=== PATIENT | female | born 1960 | race Caucasian/White ===

== ENCOUNTER 2021-03-07 06:38 | Day surgery (SDC) | payer BC ==
[2021-03-07] MEDS ORDERED: Lidocaine 1% PF 2 ML SDV INJECT ONE (06:39)
[2021-03-07] MEDS ORDERED: Propofol 200 MG/20 ML SDV IV ONE (06:39)
[2021-03-07] MEDS ORDERED: Lactated Ringers 1,000 ML IV SCH (06:45)
[2021-03-07] MEDS ORDERED: Sodium Chloride 0.9% 10 ML Syringe FLUSH PRN (06:45)
--- NOTE | 2021-03-07 08:24 | PCM.HP.2 ---
H&P History of Present Illness - General Date of Service: 03/07/21 Admit Problem/Dx: Admission Diagnosis/Problem Admission Diagnosis/Problem Colonoscopy Source of Information: Patient, Old Records History Limitations: Reports: No Limitations - History of Present Illness Initial Comments - Free Text/Narative: Here for colonoscopy for screening - Related Data Allergies/Adverse Reactions: Allergies Allergy/AdvReac Type Severity Reaction Status Date / Time acetaminophen [From [place]] Allergy Hallucinati Verified 03/07/21 07:34 ons hydrocodone [From [place]] Allergy Hallucinati Verified 03/07/21 07:34 ons Latex, Natural Rubber Allergy Rash Verified 03/07/21 07:18 Home Medications: Home Meds Albuterol [Proventil HFA] 2 puff INH Q4H PRN 03/06/21 [History] ClonazePAM [KlonoPIN] 0.5 mg PO BID PRN 03/06/21 [History] Cyclobenzaprine [Flexeril] 15 mg PO TID PRN 03/06/21 [History] Levothyroxine [Synthroid] 100 mcg PO ACBREAKFAST 03/06/21 [History] Lisinopril/Hydrochlorothiazide [Lisinopril-Hctz 10-12.5 mg Tab] 1 tab PO DAILY 03/06/21 [History] Past Medical History - Past Health History Medical/Surgical History: Denies Medical/Surgical History HEENT History: Reports: None Cardiovascular History: Reports: Hypertension Respiratory History: Reports: Asthma Gastrointestinal History: Reports: None Genitourinary History: Reports: None [employer] History: Reports: Other (See Below) Other OB/BYN History: POSTMENOPAUSAL Musculoskeletal History: Reports: Back Pain, Chronic Neurological History: Reports: None Psychiatric History: Reports: Anxiety Endocrine/Metabolic History: Reports: Hypothyroidism Hematologic History: Reports: None Immunologic History: Reports: None Oncologic (Cancer) History: Reports: None Dermatologic History: Reports: None - Past Surgical History Head Surgeries/Procedures: Reports: None HEENT Surgical History: Reports: None Cardiovascular Surgical History: Reports: None Respiratory Surgical History: Reports: None GI Surgical History: Reports: None Endocrine Surgical History: Reports: None Neurological Surgical History: Reports: None Musculoskeletal Surgical History: Reports: None Oncologic Surgical History: Reports: None Dermatological Surgical History: Reports: None H&P Review of Systems - Review of Systems: Review Of Systems: Comprehensive ROS is negative, except as noted in HPI. Exam - Exam Exam: See Below - Vital Signs Vital Signs: Last Vital Signs Temp 98.4 F 03/07/21 07:00 Pulse 66 03/07/21 07:00 Resp 18 03/07/21 07:00 BP 113/65 03/07/21 07:00 Pulse Ox 97 03/07/21 07:00 Weight: 68.1 kg - Exam General: Alert, Oriented Lungs: Clear to Auscultation, Normal Respiratory Effort Cardiovascular: Regular Rate, Regular Rhythm GI/Abdominal Exam: Soft, Non-Tender Sepsis Event Note - Focused Exam Vital Signs: Vital Signs Temp Pulse Resp BP Pulse Ox 03/07/21 07:00 98.4 F 66 18 113/65 97 Problem List Initiated/Reviewed/Updated: Yes Orders Last 24hrs: Active Orders 24 hr Category Date Time Status Patient Status [ADT] Routine ADT 03/07/21 06:45 Active Patient to Empty Bladder [RC] ASDIRECTED Care 03/07/21 06:45 Active Verify Patient Consent Obtain [RC] ASDIRECTED Care 03/07/21 06:45 Active Nothing Per Oral Diet [DIET] Diet 03/07/21 Breakfast Ordered Lactated Ringers [Ringers, Lactated] 1,000 ml Med 03/07/21 06:45 Active IV ASDIRECTED Sodium Chloride 0.9% [Saline Flush] Med 03/07/21 06:45 Active 10 ml FLUSH ASDIRECTED PRN Peripheral IV Insertion Adult [OM.PC] Routine Oth 03/07/21 06:45 Ordered Resuscitation Status Routine Resus Stat 03/06/21 13:14 Ordered Medication Orders Lactated Ringer's (Ringers, Lactated) 1,000 mls @ 125 mls/hr IV ASDIRECTED [facility] Last Admin: 03/07/21 07:30 Dose: 125 mls/hr Documented by: [facility]OS[facility] Sodium Chloride (Sodium Chloride 0.9% 10 Ml Syringe) 10 ml FLUSH ASDIRECTED PRN PRN Reason: Keep Vein Open Assessment/Plan Comment:: Colon Screening, ok to proceed. Risks and complications reviewed, consent obtained
--- NOTE | 2021-03-07 08:27 | PCM.OPNOTE ---
- General Post-Op/Procedure Note Date of Surgery/Procedure: 03/07/21 Operative Procedure(s): Colonoscopy Findings: Sig tics Pre Op Diagnosis: Screening Post-Op Diagnosis: Same Anesthesia Technique: MAC Primary Surgeon: Donta Juares Complications: None Condition: Good
--- NOTE | 2021-03-08 07:32 | OR ---
DATE OF OPERATION: 03/07/2021 SURGEON: Donta Juares MD PREOPERATIVE DIAGNOSIS: Colon screening. POSTOPERATIVE DIAGNOSIS: Sigmoid diverticulosis. PROCEDURE: Colonoscopy. ANESTHESIA: IV sedation. PROCEDURE IN DETAIL: The patient was brought to the procedure room, where she was placed on her left side and IV sedation administered. Digital rectal exam was performed, which was normal. The colonoscope was inserted and advanced to the level of the cecum without difficulty. Cecal position was confirmed by identifying the appendiceal lumen and ileocecal valve. Prep was fair with some liquid stool throughout the colon that was mostly irrigated and suctioned. Upon withdrawing the scope, the ascending, transverse, and descending colon were normal in appearance. The sigmoid colon had a few diverticulosis present. Rectum was normal and retroflexion was normal. Air was removed and the scope withdrawn. The patient tolerated the procedure well and returned to recovery in stable condition. Recommend routine colon screening again in 10 years. /[id number] LISA/DARIANA
== END 2021-03-07 09:35 | disposition home or self-care (01) ==
LOC: FB.SDS 06:38
PROVIDERS: ATTEND Surgery
DX: Z12.11 Encounter for screening for malignant neoplasm of colon (principal); K57.30 Diverticulosis of large intestine without perforation or abscess without bleeding; I10 Essential (primary) hypertension; E03.9 Hypothyroidism, unspecified; Z88.8 Allergy status to other drugs, medicaments and biological substances; Z88.5 Allergy status to narcotic agent; Z91.040 Latex allergy status; Z79.899 Other long term (current) drug therapy; Z79.890 Hormone replacement therapy
CPT/HCPCS: 00812; 45378; J2704; J7120